=== PATIENT | male | born 1935 | race Caucasian/White ===

== ENCOUNTER 2018-11-26 12:37 | Emergency (ER) | payer MEDICARE, OTHER ==
[~2018-11-26] VITALS: Ht 175.3 cm; Wt 113.6 kg
[2018-11-26 12:39] VITALS: Ht 175.3 cm; Wt 113.6 kg
[2018-11-26 13:38] LABS: BASOPHILS 0.4 % (0-2); EOSINOPHILS 2.7 % (0-7); HEMATOCRIT 30.2 % (42.0-54.0); HEMOGLOBIN 9.8 g/dL (13.5-17.5); IMMATURE GRANULOCYTES 0.6 % (0-5); LYMPHOCYTES 18.8 % (15-50); MCH 28.8 pg (26.0-34.0); MCHC 32.5 g/dL (31.0-37.0); MCV 88.8 fL (80.0-100.0); MEAN PLATELET VOLUME 8.6 fL (7.4-10.4); MONOCYTES 7.4 % (2-11); NEUTROPHILS 70.1 % (40-80); PLATELET COUNT 287 10x3/uL (130-400); RDW 13.9 % (11.5-14.5)
[2018-11-26 13:42] LABS: APTT 33.7 SECONDS (22.8-39.4); INR 1.37 (0.85-1.17); PROTIME 16.3 SECONDS (11.6-15.0)
[2018-11-26 13:44] LABS: ANION GAP 12.3 mmol/L (8-16); BILIRUBIN - TOTAL 0.28 mg/dL (0.2-1.3); CALCIUM 10.3 mg/dL (8.5-10.1); CARBON DIOXIDE 24.8 mmol/L (21.0-32.0); CREATININE - SERUM 1.8 mg/dL (0.6-1.3); POTASSIUM - SERUM 4.1 mmol/L (3.5-5.1); PROTEIN - SERUM 6.5 g/dL (6.4-8.2)
[2018-11-26 13:53] LABS: C-REACTIVE PROTEIN 18.5 mg/dL (0.0-0.9)
[2018-11-26 14:43] LABS: APPEARANCE CLEAR (CLEAR); BILIRUBIN NEGATIVE (NEGATIVE); COLOR YELLOW (YELLOW); GLUCOSE NEGATIVE (NEGATIVE); KETONE NEGATIVE (NEGATIVE); NITRITE POSITIVE (NEGATIVE); PROTEIN NEGATIVE (NEGATIVE); SPECIFIC GRAVITY 1.015 (1.005-1.020); UROBILINOGEN NORMAL (NORMAL)
[2018-11-26 14:44] LABS: BACTERIA MANY /hpf (NONE SEEN); EPITHELIAL CELLS 0-5 /hpf (0-5); RED CELLS - URINE 0-5 /hpf (0-5)
[2018-11-26 15:03] LABS: ERYTHROCYTE SEDIMENTATION RATE 53 mm/hr (0-20)
[2018-11-26] MEDS ORDERED: MILK OF MAGNESI30 ML PO (15:15)
[2018-11-26] MEDS ORDERED: MULTI-DAY VITAM1 TAB PO (15:16)
[2018-11-26] MEDS ORDERED: ULTRAM50 MG PO (15:17)
[2018-11-26] MEDS ORDERED: ACETAMINOPHEN500 M1 PO (15:17)
[2018-11-26] MEDS ORDERED: HUMALOG 30100 UNITS/ SC (15:18)
[2018-11-26] MEDS ORDERED: GLIMEPIRIDE1 MG PO (15:18)
[2018-11-26] MEDS ORDERED: MACROBID100 MG PO (15:30)
[2018-11-26] MEDS ORDERED: KEFLEX500 MG PO (15:30)
[2018-11-26 20:39] VITALS: BP 123/61
== END 2018-11-26 20:40 | disposition home or self-care (01) ==
LOC: D.ER 12:37
PROVIDERS: Family Medicine
DX: M48.061 Spinal stenosis, lumbar region without neurogenic claudication (principal); M54.5 Low back pain; N39.0 Urinary tract infection, site not specified

== ENCOUNTER → 2018-12-30 10:41 | Outpatient (CLI) | payer MEDICARE, OTHER ==
[2018-11-26 12:39] VITALS: BMI 37.0
[~2018-12-30 10:41] MED LIST: ACETAMINOPHEN500 M1 PO; GLIMEPIRIDE1 MG PO; HUMALOG 30100 UNITS/ SC; KEFLEX500 MG PO; MACROBID100 MG PO; MILK OF MAGNESI30 ML PO; MULTI-DAY VITAM1 TAB PO; ULTRAM50 MG PO
== END | disposition home or self-care (01) ==
LOC: D.MRI 10:41
PROVIDERS: ATTEND Orthopaedic Surgery
DX: M54.5 Low back pain (principal)

== ENCOUNTER → 2019-04-16 06:45 | Outpatient (CLI) | payer OTHER ==
[2018-11-26 12:39] VITALS: BMI 37.0
[2019-04-16 08:58] LABS: APPEARANCE SL CLDY (CLEAR); COLOR YELLOW (YELLOW); NITRITE POSITIVE (NEGATIVE)
[2019-04-16 08:59] LABS: BILIRUBIN NEGATIVE (NEGATIVE); GLUCOSE NEGATIVE (NEGATIVE); KETONE NEGATIVE (NEGATIVE); PROTEIN TRACE mg/dL (NEGATIVE); UROBILINOGEN NORMAL (NORMAL)
[2019-04-16 09:00] LABS: BACTERIA MANY /hpf (NEGATIVE); EPITHELIAL CELLS 0-5 /hpf (0-5); MUCUS <1+ /lpf (NONE SEEN); RED CELLS - URINE RARE /hpf (0-5); WHITE CELLS - URINE 25-50 /hpf (NEGATIVE)
[2019-04-16 09:03] LABS: ALBUMIN 3.5 g/dL (3.4-5.0); ANION GAP 13.7 mmol/L (8-16); BILIRUBIN - TOTAL 0.57 mg/dL (0.2-1.3); CALCIUM 9.6 mg/dL (8.5-10.1); CREATININE - SERUM 1.7 mg/dL (0.6-1.3); POTASSIUM - SERUM 3.7 mmol/L (3.5-5.1); PROTEIN - SERUM 7.6 g/dL (6.4-8.2)
== END | disposition home or self-care (01) ==
LOC: D.LAB 06:45
PROVIDERS: ATTEND Orthopaedic Surgery
DX: E11.9 Type 2 diabetes mellitus without complications (principal)

== ENCOUNTER 2020-10-02 10:53 | Day surgery (SDC) | payer MEDICARE, OTHER ==
[~2020-10-02] VITALS: Ht 182.9 cm; Wt 98.2 kg
[2020-10-02 11:28] LABS: BASOPHILS 0.3 % (0-2); EOSINOPHILS 1.4 % (0-7); HEMATOCRIT 32.4 % (42.0-54.0); HEMOGLOBIN 10.5 g/dL (13.5-17.5); IMMATURE GRANULOCYTES 0.7 % (0-5); LYMPHOCYTES 30.1 % (15-50); MCH 28.3 pg (26.0-34.0); MCHC 32.4 g/dL (31.0-37.0); MCV 87.3 fL (80.0-100.0); MEAN PLATELET VOLUME 9.3 fL (7.4-10.4); MONOCYTES 8.3 % (2-11); NEUTROPHIL ABS# 7.08 10x3/uL (1.78-5.38); NEUTROPHILS 59.2 % (40-80); RBC 3.71 10x6/uL (4.20-6.10); RDW 16.2 % (11.5-14.5)
[2020-10-02 11:30] LABS: PLATELET COUNT 213 10x3/uL (130-400)
[2020-10-02 11:31] LABS: ANION GAP 14.9 mmol/L (8-16); CALCIUM 10.3 mg/dL (8.5-10.1); CARBON DIOXIDE 24.2 mmol/L (21.0-32.0); CREATININE - SERUM 2.3 mg/dL (0.6-1.3); POTASSIUM - SERUM 4.1 mmol/L (3.5-5.1)
[2020-10-02 11:39] LABS: APTT 32.9 SECONDS (22.8-39.4); INR 1.23 (0.85-1.17); PROTIME 14.4 SECONDS (11.6-15.0)
[2020-10-02] MEDS ORDERED: BUMEX2 MG PO (12:00)
[2020-10-02] MEDS ORDERED: LANOXIN125 MCG PO (12:01)
[2020-10-02] MEDS ORDERED: GLIMEPIRIDE1 MG PO (12:01)
[2020-10-02] MEDS ORDERED: ZOLOFT25 MG PO (12:02)
[2020-10-02] MEDS ORDERED: MIRALAX17 GM PO (12:02)
[2020-10-02] MEDS ORDERED: CENTRUM MEN'S1 EACH PO (12:02)
[2020-10-02] MEDS ORDERED: STOOL SOFTENER100 M1 PO (12:02)
[2020-10-02] MEDS ORDERED: MELATONIN 3 MG1 TAB PO (12:03)
[2020-10-02] MEDS ORDERED: ULTRAM50 MG PO (12:03)
[2020-10-02] MEDS ORDERED: HYDROCODON-ACE1 EAC7 PO (12:03)
[2020-10-02] MEDS ORDERED: ZOFRAN4 MG PO (12:04)
[2020-10-02 12:11] VITALS: Ht 182.9 cm; Wt 98.2 kg
== END 2020-10-02 15:20 | disposition home or self-care (01) ==
LOC: D.CT 10:53
PROVIDERS: Radiology Diagnostic Radiology; ATTEND Legal Medicine
DX: N18.30 Chronic kidney disease, stage 3 unspecified (principal); D63.1 Anemia in chronic kidney disease; I50.21 Acute systolic (congestive) heart failure; F41.9 Anxiety disorder, unspecified; N40.1 Benign prostatic hyperplasia with lower urinary tract symptoms; I42.9 Cardiomyopathy, unspecified; N52.9 Male erectile dysfunction, unspecified; I10 Essential (primary) hypertension; K21.9 Gastro-esophageal reflux disease without esophagitis; Z91.81 History of falling; M17.10 Unilateral primary osteoarthritis, unspecified knee; M54.6 Pain in thoracic spine; K56.690 Other partial intestinal obstruction; M62.82 Rhabdomyolysis